=== PATIENT | male | born 1995 | race Caucasian/White ===

== ENCOUNTER 2016-08-02 12:01 | Emergency (ER) | payer BC, OTHER ==
[2016-08-02] MEDS ORDERED: LIDOCAINE 1% 10 ML VIAL INJ ONE ×2 (12:05→12:28)
[2016-08-02] MEDS ORDERED: CHLORHEXIDINE GLUCONATE 4 % 15 ML UD TOP ONE (12:05)
[2016-08-02] MEDS ORDERED: POVIDONE IODINE 10 % 15 ML UD TOP ONE (12:05)
[2016-08-02] MEDS ORDERED: NEOMYCIN-BACITRACIN-POLYMYXIN 0.9 GM UD TOP ONE ×2 (12:20→12:28)
--- NOTE | 2016-08-02 12:21 | ED.PDOC ---
History of Present Illness - General Chief Complaint: Upper Extremity Injury Stated Complaint: fish hook to left hand 2nd digit Time Seen by Provider: 08/02/16 12:19 Source: patient, RN notes reviewed, Vital Signs reviewed Exam Limitations: no limitations - History of Present Illness Initial Comments: [place] multibarb fishhook in his L index finger. Occurred: just prior to arrival Pain - Upper Extremity: moderate: Hand, left Method of Injury: other - Armour Improving Factors: nothing Worsening Factors: movement Allergies/Adverse Reactions: Allergies NO KNOWN ALLERGY Allergy (Verified 08/02/16 12:17) Home Medications: Ambulatory Orders Amoxicillin & Pot Clavulanate [Augmentin] 875 mg PO BID #14 tab 08/02/16 Lisdexamfetamine Dimesylate [Vyvanse] 40 mg PO DAILY 08/02/16 Review of Systems - Review of Systems Constitutional: States: no symptoms reported Musculoskeletal: States: no symptoms reported Skin: States: see HPI Neurological: States: no symptoms reported. Denies: numbness, paresthesia, tingling All other Systems: No Change from Baseline Past Medical History (General) - Patient Medical History Surgical History: appendectomy - Vaccination History Hx Tetanus, Diphtheria Vaccination: No Hx Influenza Vaccination: No Immunizations Up to Date: Yes - Social History Hx Tobacco Use: Yes Hx Alcohol Use: Yes - occasional Hx Substance Use: No Hx Substance Use Treatment: No Hx Depression: No - Activities of Daily Living Hospice Agency (if applicable):: None - Female History Patient is a Female of Child Bearing Age (10 -59 yrs old): No Patient : No Family Medical History - Family History Mother Family History: Unknown Living Status: Still Living Physical Exam - Physical Exam General Appearance: Alert, Comfortable, No apparent distress, Well Developed, Well Groomed, Well Hydrated, Well Nourished Elbow/Forearm Exam: normal inspection, non-tender, no evidence of injury, normal ROM Wrist Exam: normal inspection, non-tender, no evidence of injury, normal ROM Hand Exam: soft tissue tenderness - L volar index finger @ PIP joint: fishhook imbeded in finger Neuro/Tendon: normal sensation, normal motor functions, normal tendon functions Mental Status: alert, oriented x 3 Skin Exam: normal color, warm/dry Procedures - Foreign Body Removal Foreign Body Removal: fish hook - L index finger: area cleaned with alcohol. 2 cc of Lidocaine infused in area. Alize pushed rest of the way through finger and removed with metal cleaner. Rest of hook pulled back through finger without difficulty. Finger cleaned well with Hibiclens and dressed with antibiotic ointment. Patient tolerated well. Departure - Departure Clinical Impression: Fish hook injury of finger of left hand Qualifiers: Encounter type: initial encounter Qualified Code(s): S69.82XA - Other specified injuries of left wrist, hand and finger(s), initial encounter Time of Disposition: 12:25 Disposition: Discharge to Home or Self Care Condition: Good Departure Forms: ED Discharge - Pt. Copy, Patient Portal Self Enrollment Instructions: DI for Puncture Wound Diet: resume usual diet Activity: increase activity as tolerated Prescriptions: Amoxicillin & Pot Clavulanate [Augmentin] 875 mg PO BID #14 tab Home Medications: Ambulatory Orders Amoxicillin & Pot Clavulanate [Augmentin] 875 mg PO BID #14 tab 08/02/16 Lisdexamfetamine Dimesylate [Vyvanse] 40 mg PO DAILY 08/02/16 Additional Instructions: Keep finger clean and dry and dressed with antibiotic ointment. Any redness, swelling or worsening pain start antibiotics.
[2016-08-02 12:26] VITALS: TEMP 98.5
[2016-08-02 12:33] VITALS: BP 122/72; O2SAT 97
== END 2016-08-02 12:33 | disposition home or self-care (01) ==
LOC: ER 12:01
DX: S61.241A Puncture wound with foreign body of left index finger without damage to nail, initial encounter (principal); Z87.891 Personal history of nicotine dependence; X58.XXXA Exposure to other specified factors, initial encounter